=== PATIENT | female | born 1980 | race Caucasian/White ===

== ENCOUNTER 2017-06-11 16:26 | Emergency (ER) | payer OTHER ==
[~2017-06-11] VITALS: Ht 160 cm; Wt 90.7 kg
[~2017-06-11 16:26] MED LIST: PRENATAL
[2017-06-11] MEDS ORDERED: CALCIUM SUPPLEMENT (16:42)
[2017-06-11] MEDS ORDERED: MOBIC15 MG PO (16:42)
[2017-06-11] MEDS ORDERED: ZYRTEC10 M4 PO (16:42)
[2017-06-11] MEDS ORDERED: FLONASE 0.05%50 MCG NASAL (16:43)
[2017-06-11 17:20] LABS: ABSOLUTE BASOPHILS 0.1 thou/uL (0.0-0.2); ABSOLUTE EOSINOPHILS 0.3 thou/uL (0.0-0.7); ABSOLUTE MONOCYTES 0.9 thou/uL (0.0-1.2); ABSOLUTE NEUTROPHILS 5.6 thou/uL (1.6-8.1); BASOPHILS 0.9 %; EOSINOPHILS 2.9 %; HEMATOCRIT 37.2 % (37.0-47.0); HEMOGLOBIN 12.5 gm/dL (12.0-15.0); LYMPHOCYTES 30.4 %; MCH 30.2 pg (26.0-34.0); MCHC 33.6 g/dL (28.0-37.0); MCV 89.8 fL (80.0-100.0); MONOCYTES 8.8 %; MPV 8.6 fl. (7.2-11.1); NUCLEATED RBCS 0 /100WBC; PLATELET COUNT* 256 thou/uL (150-400); RBC 4.14 mil/uL (4.20-5.00); RDW-CV 13.4 % (10.5-14.5); WBC 9.8 thou/uL (4.0-11.0)
[2017-06-11] MEDS ORDERED: NORCO 5-325 TA1 EAC1 PO (17:47)
[2017-06-11 18:11] VITALS: BP 121/78
== END 2017-06-11 18:11 | disposition home or self-care (01) ==
LOC: M.ERS 16:26
PROVIDERS: Nurse Practitioner Family
DX: M25.572 Pain in left ankle and joints of left foot (principal)

== ENCOUNTER → 2017-06-22 | Outpatient (CLI) | payer OTHER ==
[~2017-06-22] MED LIST changes: +CALCIUM SUPPLEMENT; +FLONASE 0.05%50 MCG NASAL; +MOBIC15 MG PO; +NORCO 5-325 TA1 EAC1 PO; +ZYRTEC10 M4 PO
== END ==
LOC: M.MRI 16:11
DX: S83.241A Other tear of medial meniscus, current injury, right knee, initial encounter (principal); M25.461 Effusion, right knee; X58.XXXA Exposure to other specified factors, initial encounter; Y93.44 Activity, trampolining; Y92.89 Other specified places as the place of occurrence of the external cause; Y99.8 Other external cause status